=== PATIENT | female | born 1990 | race African-American/Black ===

== ENCOUNTER 2017-12-23 15:24 | Emergency (ER) | payer MEDICAID ==
[~2017-12-23 15:24] MED LIST: CEPH500C3 PO; IBUP600 PO; PERC5TAB12 PO
[2017-12-23 15:40] VITALS: BP 126/83; PULSE 82; RESP 18; TEMP 98.5; O2SAT 99
[2017-12-23] MEDS ORDERED: MELO15TA20 PO (16:14)
[2017-12-23] MEDS ORDERED: CYCL10TA PO (16:14)
[2017-12-23] MEDS ORDERED: DILA8TAB4 PO (16:14)
--- NOTE | 2017-12-23 16:19 | PD ---
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 The patient notes several days of vaginal discharge which she describes as yellow, foul smell, and worse at night. She does have a history of previous discharge and previous history of sexually transmitted infections. She notes minimal pelvic pain, denies any associated nausea or vomiting. She is currently on Depakote, has not had a menstrual cycle since September. She also complains of bilateral nipple piercings with drainage, thinks there may be an underlying infection. She denies any associated fever, chills, or sweats. Symptoms are moderate. PFSH Past Medical History Diminished Hearing: No Headaches: Yes Medical other: Yes (AVM) Tetanus Vaccination: Unknown Influenza Vaccination: No ?: Not LMP: september, had November 17. Got depo then : 6 Para: 2 Miscarriage: 1 : 3 Past Surgical History Section: Yes Neurologic Surgery: Yes (AVM REPAIR, '05) Other Surgery: Yes (R. FACIAL PLASTIC SX X2) Social History Alcohol Use: Yes (OCC) Tobacco Use: No Substance Use: Yes (MARIJAUNA, LORTAB) Allergies-Medications (Allergen,Severity, Reaction): Coded Allergies: No Known Allergies (Unverified Allergy, Unknown, 12/23/17) Reported Meds & Prescriptions Reported Meds & Active Scripts Active Bactroban Topical (Mupirocin) 22 Gm Cream 1 Applic TOPICAL BID Reported Flexeril (Cyclobenzaprine HCl) 10 Mg Tab 10 Mg PO TID Meloxicam 15 Mg Tab 15 Mg PO DAILY Dilaudid (Hydromorphone HCl) 8 Mg Tab 8 Mg PO Q8HR PRN Review of Systems Except as stated in HPI: all other systems reviewed are Neg General / Constitutional: No: Fever Gastrointestinal: No: Nausea, Vomiting, Abdominal Pain Genitourinary: Positive: Pelvic Pain, Discharge, No: Urgency, Frequency, Dysuria, Vaginal Bleeding Skin: Positive Other (Discharge near the nipple piercings bilateral), No Rash, No Itching Physical Exam Narrative GENERAL: Awake, alert, nontoxic-appearing 27-year-old female who appears her stated age and is in no acute respiratory distress. SKIN: Focused skin assessment warm/dry. HEAD: Atraumatic. Normocephalic. EYES: Fake eyelashes. No injection or drainage. GASTROINTESTINAL: Abdomen soft, non-tender, nondistended. No rebound tenderness , guarding, rigidity. Back: No CVA tenderness. Genitourinary: Exam was performed in the presence of a female nurse. External examination reveals no rashes or lesions. Speculum examination reveals the cervix is closed. Creamy white to yellow vaginal discharge noted in the vaginal vault. Wet prep and gonorrhea/chlamydia PCR were sent to lab. Breast exam: The exam was performed in the presence of a female nurse. Nipple piercings bilaterally. No erythema or drainage noted. No palpable abscess. MUSCULOSKELETAL: No obvious deformities. No clubbing. No cyanosis. No edema. NEUROLOGICAL: Awake and alert. No obvious cranial nerve deficits. Motor grossly within normal limits. Normal speech. PSYCHIATRIC: Appropriate mood and affect; insight and judgment normal. Data Data Last Documented VS Vital Signs Date Time Temp Pulse Resp B/P (MAP) Pulse Ox O2 Delivery O2 Flow Rate FiO2 12/23/17 15:40 98.5 82 18 126/83 (97) 99 Orders Orders Urinalysis - C+S If Indicated (12/23/17 15:43) Gc And Chlamydia Pcr (12/23/17 16:04) Wet Prep Profile (12/23/17 16:04) Ed Urine Pregnancytest Poc (12/23/17 16:04) Azithromycin Powd Pack (Zithromax Powd P (12/23/17 16:45) Ceftriaxone Inj (Rocephin Inj) (12/23/17 16:45) Lidocaine 1% Inj (Xylocaine 1% Inj) (12/23/17 17:00) Labs Laboratory Tests Test 12/23/17 16:40 MDM Medical Decision Making Medical Screen Exam Complete: Yes Emergency Medical Condition: Yes Medical Record Reviewed: Yes Differential Diagnosis Differential diagnosis PID, cervicitis, vaginitis, sexually transmitted infection, trichomonas, bacterial vaginosis, cellulitis, abscess, infected wound. Narrative Course A pelvic exam was completed in the presence of a female nurse. Breast exam was completed in the presence of a female nurse. Gonorrhea, chlamydia, UA, and wet prep are sent to lab. Bedside UA test was obtained. Bedside UA test was negative. The patient signed out to the oncoming physician at 5 PM with wet prep pending. Diagnosis Primary Impression: Vaginal discharge Patient Instructions: General Instructions Med/Other Pt SpecificInfo: Prescription(s) given Scripts Mupirocin Topical (Bactroban Topical) 22 Gm Cream 1 APPLIC TOPICAL BID for Mgmt Bacterial Infection, #1 TUBE 0 Refills Prov: Thai Hernandez MD 12/23/17 Disposition: DISCHARGE HOME Condition: Stable Thai Hernandez MD Dec 23, 2017 16:19
[2017-12-23] MEDS ORDERED: MUPI2%T TOPICAL (16:41)
[2017-12-23] MEDS ORDERED: AZITHROMYCIN PWD FOR SUSP 1 GM PACKET PO ONE (16:45)
[2017-12-23] MEDS ORDERED: LIDOCAINE HCL 1% 50 ML VIAL IM ONE (16:45)
[2017-12-23] MEDS ORDERED: cefTRIAXone 250 MG VIAL IM ONE (16:45)
[2017-12-23 17:00] LABS: BACTERIA, URINE RARE /hpf; BILIRUBIN, URINE NEG (NEG); BLOOD, URINE NEG (NEG); GLUCOSE,URINE NEG (NEG); KETONE, URINE NEG (NEG); NITRITE,URINE NEG (NEG); SQUAMOUS EPITHELIAL CELL URINE 1 /hpf (0-5); URINE COLOR LIGHT-YELLOW (YELLW/STRAW); URINE LEUKOCYTE ESTERASE LARGE (NEG)
[2017-12-23] MEDS ORDERED: LIDOCAINE HCL 1% 20 ML VIAL OTHER ONE (17:00)
--- NOTE | 2017-12-23 17:14 | PD ---
Physical Exam Date Seen by Provider: Dec 23, 2017 Time Seen by Provider: 17:14 Narrative 27-year-old female came to the emergency room with history of vaginal discharge. There was pelvic done with culture sent by the previous ER physician. Please refer to his history and physical for further details. As per him the pelvic exam seem pretty positive for PID. He had given her Zithromax and Rocephin. The UA came back positive. I have given her Macrobid. I will discharge her home on Macrobid and Flagyl prescription. She will be called back if the cultures are positive so that her partners can be treated Data Data Last Documented VS Vital Signs Date Time Temp Pulse Resp B/P (MAP) Pulse Ox O2 Delivery O2 Flow Rate FiO2 12/23/17 15:40 98.5 82 18 126/83 (97) 99 Orders Orders Urinalysis - C+S If Indicated (12/23/17 15:43) Gc And Chlamydia Pcr (12/23/17 16:04) Wet Prep Profile (12/23/17 16:04) Ed Urine Pregnancytest Poc (12/23/17 16:04) Azithromycin Powd Pack (Zithromax Powd P (12/23/17 16:45) Ceftriaxone Inj (Rocephin Inj) (12/23/17 16:45) Lidocaine 1% Inj (Xylocaine 1% Inj) (12/23/17 17:00) Urine Culture (12/23/17 16:40) Nitrofurantoin Monohyd Macrocr (Macrobid (12/23/17 17:15) Ed Discharge Order (12/23/17 17:25) Labs Laboratory Tests Test 12/23/17 16:40 Urine Color LIGHT-YELLOW Urine Turbidity CLEAR Urine pH 6.0 Urine Specific [place] 1.004 Urine Protein NEG mg/dL Urine Glucose (UA) NEG mg/dL Urine Ketones NEG mg/dL Urine Occult Blood NEG Urine Nitrite NEG Urine Bilirubin NEG Urine Urobilinogen LESS THAN 2.0 MG/DL Urine Leukocyte Esterase LARGE Urine RBC 2 /hpf Urine WBC 34 /hpf Urine Squamous Epithelial Cells 1 /hpf Urine Bacteria RARE /hpf Microscopic Urinalysis Comment CULTURE INDICATED Clue Cells (Wet Prep) NONE SEEN Vaginal Trichomonas (Wet Prep) PRESENT Vaginal Yeast (Wet Prep) NONE SEEN MDM Supervised Visit with JENNIFER: No Diagnosis Primary Impression: Vaginal discharge Additional Impressions: PID (acute pelvic inflammatory disease) UTI (urinary tract infection) Qualified Codes: N39.0 - Urinary tract infection, site not specified Referrals: Primary Care Physician Patient Instructions: General Instructions Additional Instruction: Take the medications as per the prescription direction to finish the course. Return to the ER if condition worsens or any other new concerns. Otherwise follow-up with your primary care. We will call you and let you know if the test is also positive so that he can that your partner(s) know so that they can be treated as well. Use condoms for next 3 weeks during intercourse Med/Other Pt SpecificInfo: Prescription(s) given Scripts Metronidazole (Flagyl) 250 Mg Tab 250 MG PO TID for Infection for 7 Days, TAB 0 Refills Prov: Dimitry Montilla MD 12/23/17 Nitrofurantoin Monohydrate Macrocrystals (Macrobid) 100 Mg Cap 100 MG PO BID for Infection for 7 Days, #14 CAP 0 Refills Prov: Dimitry Montilla MD 12/23/17 Mupirocin Topical (Bactroban Topical) 22 Gm Cream 1 APPLIC TOPICAL BID for Mgmt Bacterial Infection, #1 TUBE 0 Refills Prov: Thai Hernandez MD 12/23/17 Disposition: 01 DISCHARGE HOME Condition: Stable Dimitry Montilla MD Dec 23, 2017 17:14
[2017-12-23] MEDS ORDERED: NITROFURANTOIN MONOHYD MACROCR 100 MG CAP PO ONE (17:15)
[2017-12-23] MEDS ORDERED: MACR100C2 PO ×3 (17:24→17:36)
[2017-12-23] MEDS ORDERED: METR250 PO ×3 (17:25→17:36)
== END 2017-12-23 17:41 | disposition home or self-care (01) ==
LOC: NEPD 15:24
DX: N89.8 Other specified noninflammatory disorders of vagina (principal); N73.9 Female pelvic inflammatory disease, unspecified; N39.0 Urinary tract infection, site not specified
CPT/HCPCS: 81001; 84703; 87086; 87210; 87491; 87591; 96372; 99284; J0696